=== PATIENT | male | born 1945 | race Caucasian/White ===

== ENCOUNTER 2023-02-13 18:54 | Inpatient (IN) | payer MEDICARE ==
[~2023-02-13] VITALS: Ht 200.7 cm; Wt 60.3 kg
[2023-02-13] MEDS ORDERED: DILTIAZEM HCL 25 MG IV IV ONE (19:30)
[2023-02-13] MEDS ORDERED: POTASSIUM BICARBONATE/CIT AC 25 MEQ TABLET.EFF PO ONE (19:30)
[2023-02-13 20:05] LABS: BASOPHILS # (AUTO) 0.1 K/UL (0.0-0.2); BASOPHILS % (AUTO) 1.8 % (0.0-2.0); EOSINOPHILS # (AUTO) 0.1 K/uL (0.0-0.7); EOSINOPHILS % (AUTO) 2.3 % (0.0-7.0); HEMATOCRIT 36.1 % (36.7-47.1); HEMOGLOBIN 10.4 g/dL (12.5-16.3); LYMPHOCYTES # (AUTO) 0.7 K/uL (0.8-4.8); LYMPHOCYTES % (AUTO) 11.2 % (20.5-51.5); MEAN CORPUSCULAR HEMOGLOBIN 21.7 uug (23.8-33.4); MEAN CORPUSCULAR HGB CONC 29 g/dL (32.5-36.3); MEAN CORPUSCULAR VOLUME 75.5 fL (73.0-96.2); MONOCYTES # (AUTO) 0.2 K/uL (0.1-1.30); MONOCYTES % (AUTO) 3.7 % (0.0-11.0); NEUTROPHILS # (AUTO) 5.4 K/uL (1.8-8.9); PLATELET COUNT (AUTO) 123 K/uL (152-348); RED BLOOD CELL COUNT(AUTO) 4.78 MIL/uL (4.06-5.63); RED CELL DISTRIBUTION WIDTH 19.8 % (12.1-16.2); WHITE BLOOD COUNT (AUTO) 6.6 K/uL (3.6-10.2)
[2023-02-13 20:07] LABS: DIFFERENTIAL COMMENT 1
[2023-02-13] MEDS ORDERED: DILTIAZEM HCL 25 MG IV ONE (20:28)
[2023-02-13] MEDS ORDERED: POTASSIUM BICARBONATE/CIT AC 25 MEQ TABLET.EFF ONE (20:28)
[2023-02-13] MEDS ORDERED: MAGNESIUM SULFATE/D5W 200 ML ONE (20:28)
[2023-02-13 20:30] LABS: CALCIUM 8.6 mg/dL (8.5-10.1); CARBON DIOXIDE 11 mmol/L (21-32); CHLORIDE 99 mmol/L (98-107); LACTIC ACID 8.3 mmol/L (0.4-2.0); POTASSIUM 5.3 mmol/L (3.5-5.1); SODIUM SERUM 131 mmol/L (136-145); UREA NITROGEN, BLOOD 79 mg/dL (7-18)
[2023-02-13] MEDS: MAGNESIUM SULFATE/D5W 100 ML IV SCH ×4 (20:30→22:04)
[2023-02-13 20:53] LABS: GLUCOSE 48 mg/dL (74-106)
[2023-02-13 20:54] LABS: NT-PRO BNP > 125 pg/mL (0-125)
[2023-02-13 20:56] LABS: IRON, SERUM 11 ug/dL (50-175)
[2023-02-13] MEDS ORDERED: IV NORMAL SALINE 500 ML IV ONE (21:00)
[2023-02-13] MEDS ORDERED: MAGNESIUM SULFATE/D5W 300 ML ONE (22:06)
[2023-02-13 23:22] LABS: BILIRUBIN,DIRECT 3.2 mg/dL (0.0-0.2); BILIRUBIN,TOTAL 4.8 mg/dL (0.2-1.0)
[2023-02-13] MEDS ORDERED: IV D5 1/2 NS 1000 ML 1,000 ML IV PRN (23:30)
[2023-02-13] MEDS ORDERED: REMEDY ESSENTIAL ZINC PASTE 113 GM TP PRN (23:30)
[2023-02-13] MEDS ORDERED: ONDANSETRON 4 MG/2 ML VIAL IV PRN (23:30)
[2023-02-13] MEDS ORDERED: MAGNESIUM HYDROXIDE 30 ML LIQUID UDC PO PRN (23:30)
[2023-02-13] MEDS ORDERED: ACETAMINOPHEN 325 MG TABLET PO PRN (23:30)
[2023-02-14] VITALS (9 sets, daily range): BP systolic 70–101; BP diastolic 31–66; TEMP 92.7–97.7; O2SAT 88–100
[2023-02-14] MEDS: DILTIAZEM HCL 30 MG TABLET PO SCH ×4 (01:02→18:00)
[2023-02-14] MEDS: BLOOD SUGAR DIAGNOSTIC 1 EACH STRIP VI SCH ×5 (01:27→21:01)
[2023-02-14] MEDS ORDERED: DEXTROSE 50% 50 ML DISP.SYRIN IV ONE (05:15)
[2023-02-14] MEDS ORDERED: PANTOPRAZOLE SODIUM 40 MG TABLET.DR PO SCH (07:00)
[2023-02-14 07:33] LABS: BASOPHILS # (AUTO) 0.1 K/UL (0.0-0.2); BASOPHILS % (AUTO) 0.8 % (0.0-2.0); HEMATOCRIT 32.8 % (36.7-47.1); HEMOGLOBIN 9.3 g/dL (12.5-16.3); LYMPHOCYTES % (AUTO) 10.1 % (20.5-51.5); MEAN CORPUSCULAR HEMOGLOBIN 22.2 uug (23.8-33.4); MEAN CORPUSCULAR HGB CONC 28 g/dL (32.5-36.3); MEAN CORPUSCULAR VOLUME 78.6 fL (73.0-96.2); MONOCYTES # (AUTO) 0.4 K/uL (0.1-1.30); MONOCYTES % (AUTO) 4.4 % (0.0-11.0); NEUTROPHILS # (AUTO) 8.5 K/uL (1.8-8.9); NEUTROPHILS % (AUTO) 84.7 % (38.5-71.5); PLATELET COUNT (AUTO) 95 K/uL (152-348); RED BLOOD CELL COUNT(AUTO) 4.17 MIL/uL (4.06-5.63); RED CELL DISTRIBUTION WIDTH 20.1 % (12.1-16.2); WHITE BLOOD COUNT (AUTO) 10.1 K/uL (3.6-10.2)
[2023-02-14 07:49] LABS: DIFFERENTIAL COMMENT 1
[2023-02-14 07:58] LABS: CALCIUM 8.2 mg/dL (8.5-10.1); CHLORIDE 99 mmol/L (98-107); CREATININE 2.3 mg/dL (0.6-1.3); GLUCOSE 132 mg/dL (74-106); MAGNESIUM 3.4 mg/dL (1.8-2.4); SODIUM SERUM 130 mmol/L (136-145); THYROID STIMULATING HORMONE 8.757 mIU/mL (0.358-3.740)
[2023-02-14] MEDS ORDERED: LORAZEPAM 2 MG/1 ML VIAL IV PRN (09:30)
[2023-02-14 09:48] LABS: CARBON DIOXIDE 8 mmol/L (21-32); PHOSPHOROUS 8.5 mg/dL (2.5-4.9); UREA NITROGEN, BLOOD 83 mg/dL (7-18)
[2023-02-14] MEDS ORDERED: FUROSEMIDE 40 MG/4 ML VIAL IV ONE (10:15)
[2023-02-14] MEDS: MORPHINE SULFATE 2 MG/1 ML DISP.SYRIN IV PRN ×3 (11:34→20:04)
[2023-02-14 16:19] LABS: *BLOOD, URINE 3+ (NEGATIVE); *COLOR,URINE YELLOW (YELLOW); *KETONES,URINE NEGATIVE (NEGATIVE); LEUKOCYTE ESTERASE ,URINE NEGATIVE (NEGATIVE); NITRITE, URINE NEGATIVE (NEGATIVE); PH,URINE 5.5 (5.0-8.0); UGLUCOSE NEGATIVE (NEGATIVE)
[2023-02-14 16:23] LABS: *BILIRUBIN,URIN 1+ (NEGATIVE); *CLARITY,URINE SLCLOUDY (CLEAR); *PROTEIN,URINE 3+ (NEGATIVE)
[2023-02-14 16:58] LABS: *CREATININE,URINE 108.6 mg/dL (30-125); *URINE TOTAL PROTEIN RANDOM 411.9 mg/dL (<150/24HR)
[2023-02-14 19:38] LABS: BACTERIA,URINE MANY /HPF (NONE SEEN); RBC,URINE TNTC /HPF (0-3); SQUAMOUS EPITHELIAL CELL,UR FEW /HPF (NONE SEEN); WBC,URINE 0-3 /HPF (0-3)
[2023-02-14 19:39] LABS: URINE AMORPHOUS URATE MANY /HPF
== END 2023-02-15 00:25 ==
LOC: ER 18:56 → TELE3 22:56
PROVIDERS: ADMIT Nurse Practitioner Acute Care; ATTEND Nurse Practitioner Acute Care
DX: I50.23 Acute on chronic systolic (congestive) heart failure (principal); E43 Unspecified severe protein-calorie malnutrition; I21.A1 Myocardial infarction type 2; J96.01 Acute respiratory failure with hypoxia; N17.0 Acute kidney failure with tubular necrosis; E87.1 Hypo-osmolality and hyponatremia; E87.20 Acidosis, unspecified; R64 Cachexia; J90 Pleural effusion, not elsewhere classified; Z68.1 Body mass index [BMI] 19.9 or less, adult; Z51.5 Encounter for palliative care; D50.9 Iron deficiency anemia, unspecified; E16.2 Hypoglycemia, unspecified; E87.5 Hyperkalemia; I25.10 Atherosclerotic heart disease of native coronary artery without angina pectoris; I25.5 Ischemic cardiomyopathy; I48.0 Paroxysmal atrial fibrillation; N18.9 Chronic kidney disease, unspecified; Z66 Do not resuscitate; Z95.5 Presence of coronary angioplasty implant and graft
CPT/HCPCS: 36415; 71045; 83550; 83605; 83735; 84100; 84300; 84443; 84484; 85025; 85730; 93005; A4663; C1758; G0378; J1940; J2270; J3475; J3490; J7040